=== PATIENT | female | born 1990 | race Two or more races ===

== ENCOUNTER 2025-02-15 09:00 | Emergency (ER) | payer MEDICAID, SELFPAY ==
[2025-02-15 09:01] VITALS: BMI 26.9
[2025-02-15 09:11] VITALS: BP 135/86; PULSE 86; RESP 18; TEMP 37.1; O2SAT 95
--- NOTE | 2025-02-15 09:20 | EDNOTE_ITS ---
ED General RME/HPI General Chief complaint: Skin/Abscess/Foreign Body Stated complaint: HIVES W/ CHILLS, STARTED TU Time Seen by Provider: 02/15/25 09:11 Arrival date/time: 02/15/25 09:00 Limitations: no limitations RME / HPI RME / HPI narrative: DR. ROBERTS MAIN ED EVALUATION: 34 year old female presents to the Emergency Department with complaint of rash/ hives onset 3 days. She was already seen at her clinic and treated with benadryl, pepcid, and steroids. No other symptoms at this time. Related Data Previous Rx's ?Medication ?Instructions ?Recorded cephalexin 500 mg capsule (Keflex) 500 mg PO QID #40 c aps 07/26/19 cephalexin 500 mg capsule 500 mg PO BID #14 caps 01/08 cefuroxime axetil 500 mg tablet 500 mg PO BID #14 tabs 09/24/23 ibuprofen 800 mg tablet 800 mg PO TID PRN pain #30 t abs 09/24/23 levocetirizine 5 mg tablet (Xyzal) 5 mg PO QDAY #14 ta bs 02/15/25 Allergies Allergy/AdvReac Type Severity Reaction Status Date / Time No Known Allergies Allergy Verified 02/15/25 09:03 Review of Systems Review of Systems Systems Reviewed: All systems reviewed, normal except as documented Narrative Review of Systems: GEN: No fever, no chills, no weight loss EYES: No discharge, no visual changes, no pain HEENT: No ear pain, no congestion, no sore throat PULM: No shortness of breath, no cough, no congestion CV: No chest pain, no dyspnea on exertion, no palpitations GI: No nausea, no vomiting, no diarrhea, no pain, no constipation : No frequency, no urgency and no dysuria MUSC/SKEL: No joint pain, no back pain SKIN: + diffuse rash PSYCH: No hallucinations, no depression HEME/LYMPH: No easy bleeding or bruising tendencies NEURO: No weakness, no headache Past Medical History Past Medical History GENITOURINARY: Positive Kidney Stones Social History SMOKING STATUS: Never smoker SUBSTANCE USE: does not use ALCOHOL: Never ED Exam General Limitations: Present no limitations General appearance: Present alert and in no apparent distress Head Head exam: Present atraumatic, normocephalic and normal inspection Eye Eye exam: Present normal appearance, PERRL and EOMI ENT ENT exam: Present normal exam, normal oropharynx and mucous membranes moist Neck Neck exam: Present normal inspection, full ROM and trachea midline Chest Chest inspection: Present normal inspection and symmetric chest wall rise Respiratory Respiratory exam: Present normal lung sounds bilaterally Cardiovascular Cardiovascular exam: Present regular rate, normal rhythm and normal heart sounds Abdominal Exam Abdominal exam: Present soft and normal bowel sounds Extremities Exam Extremities exam: Present normal inspection and full ROM Back Exam Back exam: Present normal inspection and full ROM Neurological Exam Neurological exam: Present alert, oriented X3 and CN II-XII intact Psychiatric Psychiatric exam: Present normal affect and normal mood Skin Skin exam: Present warm, dry, normal color and rash (diffuse) Course Quality Measures none Vital Signs Vital signs: Vital Signs Temperature 98.7 F 02/15/25 09:11 Pulse Rate 86 02/15/25 09:11 Respiratory Rate 18 02/15/25 09:11 Blood Pressure 135/86 H 02/15/25 09:11 Pulse Oximetry (%) 95 02/15/25 09:11 Oxygen Delivery Method Room Air 02/15/25 09:11 Discharge Plan Plan Patient Disposition: HOME (Self Care) Patient condition on transfer: Stable Prescriptions/Referrals Prescriptions/Med Rec: New levocetirizine [Xyzal] 5 mg tablet 5 mg PO QDAY Qty: 14 0RF No Action cephalexin [Keflex] 500 mg capsule 500 mg PO QID Qty: 40 0RF cephalexin 500 mg capsule 500 mg PO BID Qty: 14 0RF cefuroxime axetil 500 mg tablet 500 mg PO BID Qty: 14 0RF ibuprofen 800 mg tablet 800 mg PO TID PRN (Reason: pain) Qty: 30 0RF Problem List Clinical Impression: Acute idiopathic urticaria Patient/Caregiver Discharge Instructions Print Language: Kyrgyz Stand Alone Forms: Anne Award Info., Patient Portal Info Letter MDM Narrative [facility] hospital course: I, Tamara Adrian am scribing for and in the presence of Dr. Roberts. Clinical Information Provided by patient Medical Records Reviewed [facility] Meds/Rx Considered, not Ordered None Labs/Rad/Tests considered, not Ordered None Chronic Illness/Social Conditions Add or document further as needed: Denies any PMHx, surgeries, daily medications, or known allergies. Lab Interpretation Labs: none Imaging Imaging interpretation: none Medication Administration(s) none Diagnosis Differential diagnosis: rash, cellulitis, hives Most likely dx, and/or detailed dx discussion: Acute idiopathic urticaria Dispositon Disposition: Discharge Home
[2025-02-15 10:48] VITALS: BP 128/77; PULSE 78; RESP 18; TEMP 36.8; O2SAT 99
== END 2025-02-15 10:49 | disposition home or self-care (01) ==
LOC: SERX 09:49
PROVIDERS: Emergency Provider Emergency Medicine; PCP Family Medicine
DX: L50.1 Idiopathic urticaria (principal)
CPT/HCPCS: 99281